=== PATIENT | male | born 1970 | race Caucasian/White ===

== ENCOUNTER 2016-12-16 09:29 | Emergency (ER) | payer SELFPAY ==
[~2016-12-16] VITALS: Ht 182.9 cm; Wt 80.7 kg
--- NOTE | 2016-12-16 09:48 | Emergency Room Report ---
History of Present Illness Time Seen by MD Bruce Presenting Problem in Triage Pt arrived:Walked Presenting Problem:PT REPORTS PAIN AT UMBILICAL AREA THAT BEGAN YESTERDAY AND HAS GOTTEN WORSE. 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 N Clinical Suspician of Infection? N Mental Status: 1 - Regular (Normal Baseline) Sepsis Risk:Low Sepsis Risk Have you (or family members/close friends) recently traveled outside the [place]? N If Yes, where/when: Have you had exposure to infectious disease within the past month? N TB? Other? Specify: Patient states 9 PM last night he started with sharp achy umbilical area pain that does not radiate anywhere. Does not radiate to his back. Denies nausea vomiting diarrhea fevers or chills he states this is a new pain for him. He states it feels better laying on his side. Does not like to move with that he makes no urinary complaints. He rates the pain and 9/10. ALLERGIES Coded Allergies: oxycodone (NA-NAUSEA 12/16/16) tramadol ("KNOCKS ME OUT" 12/16/16) Home Medications Reported Medications No Known Home Medications History Medical History General CAD? No Angina: No PR: No Hypertension? No Hyperlipidemia? No CHF? No DVT? No PE? No COPD? No Asthma? No Anemia? No GERD? No Gastric ulcers? No GI Bleed? No Hernia? Yes Thyroid Problems? No Hypothyroidism? No CVA? No Seizures? No Diabetes? No Renal Insuffiency? No End Stage Renal Disease? No UTI? Yes Stones? Yes GB Disease: No Nephritic Syndrome? No Asplenia? No Hepatitis? No Sickle Cell Disease? No Arthritis? No Migraines? No Cataracts? No Glaucoma? No MRSA? No HIV? No TB? No Anxiety? No Depression? No Cancer? No More? No Immunization Hx DT/Tetanus 5-10 YRS Flu NEVER Pneumonia NEVER Surgical Hx Previous Surgery?Y Appendix LAPAROTOMY FOR BOWEL OBST RUCTION KNEE ARTHROSCOPY R LITHOTRIPSY WITH STENT ORAL SURGERY Hernia Repair TUMOR REMOVED FROM FINGER Family History Family Hx Diabetes Yes CAD Yes Hypertension Yes Hyperlipidemia Yes Cancer Yes TB No Social History Smoking Hx Smoker: Current Every Day Smoker Tobacco: Yes Type Cigarettes Packs/day 1 1/2 - 2 Packs Alcohol Alcohol: No Review of Systems All Other Systems Reviewed and Negative Physical Exam Vital Signs Vital Signs Date Time Temp Pulse Resp B/P Pulse O2 O2 Flow FiO2 Ox Delivery Rate 12/16 1225 71 20 124/72 98 12/16 1137 20 12/16 1058 63 18 126/83 97 12/16 1006 14 12/16 0934 97.5 63 18 136/86 97 General Appearance: Nontoxic Head: Normocephalic, without obvious abnormality, atraumatic. Eyes: conjunctiva/corneas clear ENT: Mucous membranes moist. Neck: No jugular venous distention. Cardiac: regular rate and rhythm Lungs: Clear to auscultation bilaterally Abdomen: Epigastric umbilical and RIGHT lower quadrant tenderness, Nondistended, positive bowel sounds, no rebound : No CVA tenderness Extremities: no edema Musculoskeletal: No chest wall tenderness Skin: No rashes or lesions to exposed skin. Neurologic: Alert. No gross focal deficits Psychiatric: Normal affect (Tawnya TRIPP, Dmitri) General Appearance normal appearance Respiratory Status No: respiratory distress. Cardiovascular normal exam Neurologic alert Medical Decision Making LABS/Meds/Orders Pt receiving controlled substance in ED? No Comment 1005 repeat exam, rlq hernia areas NT per patient. hx r sided hernia and sp repair r inquinal hernia. states some tenderness in r inquinal hernai repair area but states chronic, no inquine hernia palpated. does have rlq hernia palpable but states nt. 111pm pt standing up in ER hallway, telling RNs he wants to leave. I ask him why he states its a "personal issue" I discussed with risk of sudden , permanent disability. CT scan result still pending. 114 pleaded with patient to stay, on phone with ct to try to get read. CT scan has come back read by radiologist with "no definitive evidence of acute abdominal or pelvic pathology Results/Orders Laboratory Tests 12/16/16 0955: Urine Color YELLOW, Urine Appearance CLEAR, Urine pH 6.5, Ur Specific Galt 1.020, Urine Protein NEGATIVE, Urine Ketones NEGATIVE, Urine Blood TRACE-INTACT, Urine Nitrate NEGATIVE, Urine Bilirubin NEGATIVE, Urine Urobilinogen 0.2, Ur Leukocyte Esterase NEGATIVE, Urine RBC OCC, Urine WBC NONE, Ur Squamous Epith Cells OCC, Urine Bacteria 1+, Urine Glucose NEGATIVE 12/16/16 0950: Sodium 136, Potassium 4.3, Chloride 103, Carbon Dioxide 28, BUN 17, Creatinine 0.8, Estimated Creat Clear 135, Estimated GFR (MDRD) 105, Glucose 94, Calcium 9.0, Total Bilirubin 0.3, AST 16, ALT 32, Alkaline Phosphatase 73, Troponin I < 0.02, Total Protein 7.6, Albumin 4.0, Globulin 3.6 H, Albumin/Globulin Ratio 1.1, Lipase 149, WBC 11.3 H, RBC 5.22, Hgb 16.8, Hct 50.3, MCV 96.4, RDW 12.5, Plt Count 259, Gran % 66.9, Gran # 7.6, Lymphocytes % 24.1, Monocytes % 5.6, Eosinophils % 3.1, Basophils % 0.3, Lymphocytes # 2.5, Monocytes # 0.6, Eosinophils # 0.4, Basophils # 0.0, PUBS MCHC 33.4, MCH 32.1 H Current Medication Orders Sig/Berlin Start time Last Medication Dose Route Stop Time Status Admin Ondansetron HCl 0 .STK-MED ONE 12/161 DC .ROUTE Morphine Sulfate 0 .STK-MED ONE 12/16 1130 DCr .ROUTE Ketorolac 15 MG ONCE ONE 12/16 1015 DC 12/16 Tromethamine IV 12/16 1016 1006 Ketorolac 0 .STK-MED ONE 12/16 1006 DC Tromethamine .ROUTE Diatrizoate Meglum/ 30 ML ONCE ONE 12/16 1000 DC 12/16 Diatrizoate Sod PO 12/16 1001 0958 Sodium Chloride 10 ML PRN PRN 12/16 1000 AC IV 12/17 0946 Sodium Chloride 1,000 ML .STK-MED ONE 12/16 0959 DC IV Diatrizoate Meglum/ 0 .STK-MED ONE 12/16 0952 DC Diatrizoate Sod .ROUTE Morphine Sulfate 4 MG ONCE ONE 12/16 0845 DCr 12/16 IV 12/16 0946 1137 Ondansetron HCl 4 MG ONCE ONE 12/16 0845 DC 12/16 IV 12/16 0946 1136 Sodium Chloride 1,000 ML .Q1H1M 12/16 0845 DC 12/16 IV 12/16 1045 0959 Sodium Chloride 10 ML PRN PRN 12/16 944 AC IV 12/17 944 Orders Procedure Date/time Status DIET-NOTHING BY MOUTH 12/[address] ABD W/RLQ PAIN REQ 12/17 951 Complete ELECTROCARDIOGRAM REQUEST 12/[address] ABD W/RLQ PAIN REQ 12/16 945 Active CHEST(2 VIEWS-NOT PORTABLE) 12/16 945 Active IV SALINE LOCK 12/16 945 Active URINALYSIS/COMPLETE 12/16 945 Complete TROPONIN I 12/16 945 Complete LIPASE 12/16 945 Complete CBC WITH AUTO DIFF 12/16 945 Complete CHEM 12 PROFILE 12/16 945 Complete 12 LEAD EKG-SAMANTHA (INITIAL) 12/[address] ABD & PELVIS W/ CONTRAST 12/16 UNK Active 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 Rhythm Sinus Bradycardia Rate 47 Ectopy No Comments Normal axis nonspecific electrocardiogram Departure Departure Time of Disposition 1338 Disposition DC Home or Self Care(routine) Clinical Impression Primary Impression: Abdominal pain Condition STABLE Patient Instructions DI for Abdominal Pain-Adult Additional Instructions follow up with PMD from list RN will give you return to ER if worse Discharge Counseling Counseled pt/family regarding diagnosis, test results, medications/RX, home care, follow up needs Prescriptions Current Visit Scripts Ondansetron (Zofran 4MG Odt) 4 MG PO Q6HP PRN NAUSEA AND VOMITING #10 ODT ED Critical Care Critical Care No at 1340
[2016-12-16 10:01] LABS: HEMOGLOBIN 16.8 g/dL (14.1-18.0); LYMPH # 2.5 K/mm3 (0.7-4.5); LYMPH % 24.1 % (10-50)
[2016-12-16 10:02] LABS: URINE BILIRUBIN - DIPSTICK NEGATIVE (NEG); URINE BLOOD TRACE-INTACT (NEG)
[2016-12-16 10:11] LABS: URINE SQUAMOUS CELLS OCC #/hpf (OCC)
[2016-12-16 10:20] LABS: BUN 17 mg/dL (7-18)
[2016-12-16 10:21] LABS: GFR (ESTIMATED) 105 ML/MIN (>60)
[2016-12-16 14:16] VITALS: BP 124/72
--- NOTE | 2016-12-16 16:06 | RADIOLOGY REPORT PS360 ---
CHEST(2 VIEWS-NOT PORTABLE) INDICATION: Chest pain COMPARISON: PA and lateral chest 02/04/2010 FINDINGS: The lung silveira are well expanded and appear clear of infiltrate. The cardiomediastinal silhouette and vascularity are normal. The costophrenic angles are clear. The bony thorax is normal. IMPRESSION: Normal chest.
--- NOTE | 2016-12-16 20:16 | RADIOLOGY REPORT PS360 ---
CT ABD PELVIS W/ CONTRAST HISTORY: RLQ PAIN. Patient Age: 46 years: Male Ordering Physician: Dmitri Bowling MD TECHNIQUE: Helical CT scanning performed through abdomen and pelvis following 75 cc Isovue-370. Oral contrast also utilized.. Early venous phase imaging as well as 5 minute delayed images performed. COMPARISON :Previous CTA abdomen November 2011 FINDINGS Lung bases appear clear no active disease. Heart upper normal size. Liver. Small fatty focus adjacent to the right of the fissure and falciform ligament region. This was partially imaged 2011 but can be followed. No focal areas of concern at the liver. Pancreas. No lesions evident. A generous but normal pancreatic duct observed. Spleen appears normal size. Left adrenal. Generous left a small nonfunctioning adenoma 11 x 10 mm. Its density decreases by greater than 50% on the 5 minute follow-up. This supports benign character. Right adrenal unremarkable. KIDNEYs. No obstruction. No significant calculi. Normal enhancement. Ureters normal in course and caliber can be followed to the normal appearing bladder. Prostate appears normal in size. However note Slightly ill-defined margins about the prostate. This is seen previously on 2012 CT in this unlikely reflects prostatitis. GI TRACT. Generous stool throughout the colon reflect mild constipation.. Redundant cecum resides in the lower right pelvis No evidence of appendicitis.. However I do not discretely visualized appendix appears the lower right pelvis see no evidence of appendicitis or inflammation. Moderate pelvic veins pelvic sidewall. Small bowel appears normal. Terminal ileum UNREMARKABLE. There are some stable moderate nodes at the inguinal regions and groin bilaterally. Regarding right lower quadrant pain:. There is a small lateral, spigellian type,/semilunar hernia seen at the right lower quadrant. This was evident previously. Abdominal wall defect likely measuring just over 12 mm height x 20 mm transverse. Slight bulging of fat into this area. With subtle hazy appearance this seen here. Question some possible scant inflammation associated.. This is best seen on sagittal image 24-26 and axial image 79. This was not noted on [facility] report IMPRESSION: Regarding right lower quadrant pain: 1 Again seen small semilunar/spigellian type hernia towards RLQ.. . Subtle hazy appearance to the bulging fat into this this defect noted-q question could reflect some very minor inflammation in this fat, passing into this small hernia.. If pain persists consider surgical consult ..-No bowel loops involvement here. Only fat 2. Low-lying redundant cecum at the right pelvis. \ Appendix is not discretely visualized but no evidence of appendicitis. . No fluid in the pelvis. 3. Generous stool is seen throughout the colon-may reflect mild constipation 4.. Normal functioning kidneys bilaterally. No obstruction or calculi
--- OUTSIDE RECORDS SUMMARY | 2016-12-24 13:59 | External Medical Summary Rpt | CCD ---
Author Author , SHELLY BRAVO Address Unknown Phone [email or web address] Care Team Providers Care Cafeteria Counter Attendant Name Role Phone RIGOBERTO VALLE JR, Unavailable Unavailable RIGOBERTO VALLE JR [facility] Unavailable Unavailable SURGERY [facility], [facility] SURGERY [facility] Unavailable Unavailable [facility], [facility] SHRAVAN SINGH, Unavailable Unavailable SHRAVAN SINGH WARREN, Unavailable Unavailable CHANEL VALENTE [facility] Unavailable Unavailable SERVICE, [facility] VINEET ORTIZ, Unavailable Unavailable VINEET ORTIZ CARINA, Unavailable Unavailable ROBBI MIGUEL JR, J V, Unavailable Unavailable Max RICKS JR, DOUGLAS, Unavailable Unavailable ESTEFANIA BEATTY GEOFFREY L.PQuinn, GEOFFREY L.P. Unavailable Unavailable [facility] [place], Unavailable Unavailable [facility] Unavailable Unavailable INC, [facility] ALEJANDRA WALKER, Unavailable Unavailable ALEJANDRA WALKER MATHEW A, Unavailable Unavailable DHARA LAINEZ OZOR MAR, OZOR MAR Unavailable Unavailable OZOR MAR, OZOR MAR Unavailable Unavailable MICKI LAZAR, Unavailable Unavailable MICKI LAZAR MARK E, Unavailable Unavailable SATHISH WHITMAN STEPHEN P, Unavailable Unavailable SHRAVAN PAIZ JEFF A, Unavailable Unavailable JIM SANTOYO JEFFREY M, Unavailable Unavailable EVELIA COTO [facility] Unavailable Unavailable [address][id number], [facility] Unavailable Unavailable [address]591, [facility] # Unavailable Unavailable [id number], [facility] # [id number] SHARON MUNROE, Unavailable Unavailable SHARON MUNROE Purpose Continuity of Care Document - 06-21-2008 through 2016 Problems Code Diagnosis DOS Provider Status 7821 RASH AND 05-25-2013 OZOR MAR OTHER NONSPECIFIC SKIN ERUPTION 6829 CELLULITIS 08-09-2009 [facility]THLOCCO [place] [facility]ESS [facility] OF UNSPECIFIED SITE 2152 OTH STEPHEN LADONNA 07-18-2009 [place] CNCTV&OTH TZ SFT TISS UP &ASSOCHANDC LIMB ARE [facility] W/SHLDR 9595 INJURY 07-18-2009 RUI VERDE OTHER AND TZ UNSPECIFIED &ASSOCHANDC FINGER ARE [facility] V5889 ENCOUNTER 07-18-2009 R[place] VERDE FOR OTHER TZ SPECIFIED &ASSOCHANDC AFTERCARE ARE [facility] 51300 PAIN IN 07-01-2009 RUI VERDE JOINT, HAND TZ AND ASSOC[facility] 21429 SWELLING OF 07-01-2009 RUI VERDE LIMB TZ AND ASSOC[facility]ATES 29931 UNSPECIFIED 07-01-2009 R[place] VER[facility] CYST OF TZ AND BONE ASSOCIATES V5878 AFTERCARE 07-01-2009 R[place] FOLLOW TZ AND SURGERY ASSOCIATES MUSCULOSKEL SYSTEM NEC 46964 UNSPECIFIED 06-30-2009 [facility] CELLULITIS [facility] AND [facility] ABSCESS OF FINGER 97856 OTHER 06-30-2009 [facility] POSTOPERATI EMERGENCY VE SERVICES INFECTION ASSOCIATES NEC 2135 BENIGN 06-28-2009 [facility] NEOPLASM OF [facility] SURGERY BONES OF [place], [facility] UPPER LIMB 2380 NEOPLASM 06-28-2009 ALL[facility] UNCERTAIN AND LIRA BEHAVIOR PSC BONE&ARTICL R CART 7062 SEBACEOUS 06-28-2009 [facility] [place] PATHOLOGIST PSC V7281 PRE-OPERATI 06-26-2009 [facility] CARDIOVASCU INC LAR EXAMINATION 7822 LOCALIZED 06-03-2009 [facility] [place] SUPERFICIAL ORTHOPAEDIC SWELLING S PLC MASS OR LUMP 2382 NEOPLASM OF 05-31-2009 MILLICENT UNCERTAIN JR J V BEHAVIOR OF SKIN 62751 DISORDER OF 05-31-2009 [place] ORTHO BONE AND AND HAND CARTILAGE SURGEONS UNSPECIFIED PSC 80981 OTHER 05-22-2009 ESTEFANIA C SYMPTOMS ROGERIO REFERABLE JOINT OTHER SPEC SITE 72070 ING SHIRA 04-11-2009 TORI HICKS, W/O MENTION RIGOBERTO F OBST/GANG[place] N UNILAT/[place] [address] ABDOMINAL 03-26-2009 [place] PAIN RIGHT MEDICAL LOWER [facility] 55497 CHEST PAIN 03-16-2009 [facility] UNSPECIFIED [facility] PROF SERV 17144 OTHER CHEST 03-16-2009 [facility] V7283 OTHER 01-23-2009 [facility] SPECIFIED [facility] PRE-OPERATI INC VE EXAMINATION 70527 [facility] 01-[facility] RICKS W/O JR, J V OBST/GANGRE N RECUR UNILAT/UNS Medications Na ND Rx Da Fi Fi Am Da Di Ph RX Ph St me C No te ll ll ou ys ag ar # ys at rm s nt no ma ic us Or Da si cy ia de te s n re d JAY 53 05 05 0 20 10 WA 71 FO Ac LF 74 -2 -2 .0 L- 93 WL ti AM 60 8- 8- 00 MA 07 ES ve ET 27 20 20 RT 0 HO 20 10 10 TH XA 5 PH OM ZO AR LE MA W -T CY MP # DS 10 05 TA 71 BL ET 00 04 04 0 10 2 NV 44 Ac 40 -1 -1 .0 L- 96 OL ti 60 8- 8- 00 MA 65 ET ve 36 20 20 RT 4 TE 30 10 10 1 PH JE AR FF MA RE CY Y # M 10 05 71 JAY 53 04 04 0 40 10 NV 71 Ac LF 74 -1 -1 .0 L- 86 OL ti AM 60 8- 8- 00 MA 17 ET ve ET 27 20 20 RT 1 TE HO 20 10 10 XA 5 PH JE ZO AR FF LE MA RE -T CY Y MP # M DS 10 05 TA 71 BL ET 00 04 04 0 40 2 NV 44 BR Ac 40 -1 -1 .0 L- 96 EI ti 60 6- 6- 00 MA 61 DE ve 35 20 20 RT 2 NB 70 10 10 AC 5 PH H AR WA MA RR CY EN # 10 05 71 58 11 12 00 20 5 NV 70 AL Ac 17 -1 -0 .0 L- 46 LR ti 70 7- 3- 00 MA 22 AN ve 30 20 20 RT 6 10 09 09 JR 4 PH AR CH MA AR CY LE S #5 F 91 CH 00 10 11 00 47 7 NV 71 HO Ac LO 11 -2 -0 3. L- 55 LL ti RH 62 7- 5- 00 MA 60 EN ve EX 00 20 20 0 RT 9 ID 11 09 09 RUPAL IN 6 PH AN E AR N 0. MA E 12 CY % RI #5 NS 71 E 53 06 07 00 90 30 WA 44 HU Ac 48 -2 -3 .0 L- 88 NT ti 90 3- 0- 00 MA 38 ve 11 20 20 RT 7 TR 00 09 09 AV 1 PH IS AR A MA CY #5 71 53 06 07 00 90 30 WA 44 HU Ac 48 -2 -1 .0 L- 88 NT ti 90 3- 6- 00 MA 38 ve 11 20 20 RT 7 TR 00 09 09 AV 1 PH IS AR A MA CY #5 71 00 04 04 00 30 30 WA 44 No Ac 40 -0 -0 .0 L- 85 t ti 60 3- 9- 00 MA 39 Av ve 35 20 20 RT 4 ai 80 09 09 la 1 PH bl AR e MA CY #5 71 Procedures Procedure DOS Code Location Performer Comment RADEX 59692 NICK VERDE FINGR 0 JO CH, MINIMUM 2 &ASSOCHAN CHANEL VIEWS DCARE PLL RADEX 13208 DIANA VERDE FINGR 0 JO AND VINEET K MINIMUM 2 ASSOCIATE VIEWS S BLOOD 45067 [facility] COUNT 0 [facility] COMPLETE INC INC AUTO&AUTO DIFRNTL WBC RADEX 38706 [facility] FINGR 0 [facility] MINIMUM 2 INC INC VIEWS EXC 38044 NICK VERDE LESION 0 JO CH, TDN &ASSOCHAN CHANEL SHTH/JT DCARE CAPSL PLL HAND/FNGR ANES 01474 ALLAN PAIZ, ARTHRS/EN 0 AND SHRAVAN P DSCPY LIRA DSTL PSC RADIUS ULNA/WRIS T/HAND LEVEL III 41494 [facility] SURG 0 [facility] PATHOLOGY [facility] GROSS&ELI ROSCOPIC EXAM PROSTHETI L8699 [facility] C IMPLANT 0 [facility] NOT SURGERY SURGERY OTHERWISE [facility] SPECIFIED EXCISION/ 66322 [facility] CURETTAGE 0 [facility] SURGERY SURGERY CYST/TUMO [facility], [facility] FINGER SLINGS A4565 [facility] 0 BLOOD 09986 [facility] COUNT 0 [facility] COMPLETE INC INC AUTO&AUTO DIFRNTL WBC RADEX 83216 NICK VERDE FINGR 0 JO CH, MINIMUM 2 &ASSOCHAN CHANEL VIEWS DCARE [facility] MRI UPPER 24830 CAPRI MIGUEL, EXTREM 0 IMAGING [facility] THAN JT W/O & W/CONTRAS MRI UPPER 79765 ESTEFANIA C ROGERIO, 0 ROGERIO ESTEFANIA EXTREMITY OTH THAN JT W/O CONTR MATRL RADEX 89614 CAPRI AARON, FINGR 0 MEDICAL ALEJANDRA P MINIMUM 2 IMAGING VIEWS ASSOCIATE S PELVIC [address] [facility] [place] [place] ROGERIO, 0 MEDICAL ESTEFANIA NONOBSTET IMAGING RADHA ASSOCIATE REAL-TIME S IMAGE COMPLETE GROUND A0425 ELROY ABBASI MILEAGE 0 AMBULANCE AMBULANCE PER SERVICE SERVICE STATUTE MILE ECG 97510 [facility] SINGH, ROUTINE 0 [facility] W/LEAST PROF SERV 12 LDS I&R ONLY RHYTHM 90197 [facility] STR[facility]D ECG 1-3 0 MEM HOS[facility] MEM [facility]OS[facility] LEADS INC INC TRACING ONLY W/O I&R AMB A0422 ELROY ABBASI OXYGEN&O2 0 AMBULANCE AMBULANCE SUPPLIES SERVICE SERVICE LIFE SUSTAININ G SITUATION BLOOD 19923 [facility] COUNT 0 [facility]OS[facility] COMPLETE INC INC AUTO&AUTO DIFRNTL WBC BASIC 61800 [facility] METABOLIC 0 [facility] PANEL INC INC CALCIUM TOTAL AMB A0427 ELROY ABBASI SERVICE 0 AMBULANCE AMBULANCE ALS SERVICE SERVICE EMERGENCY TRANSPORT LEVEL [address] [place] [address] [facility] TROPONIN 0 [facility] QUANTITAT INC INC KAELA CREATINE 93796 [facility] KINASE MB 0 MEM HOS[facility] FRACTION INC INC ONLY CREATINE 38830 [facility] KINASE 0 [facility] H[facility]OS[facility] TOTAL INC INC ECG 31033 [facility] ROUTINE 0 [facility]OS[facility] ECG INC INC W/LEAST 12 LDS TRCG ONLY W/O I&R RADIOLOGI 54907 [facility] C 0 [facility] HOS[facility] MEM HOS[facility] EXAMINATI INC INC ON CHEST SINGLE VIEW FRONTAL LAPAROSCO 48874 TORI REINOSORAN PY SURG 9 JR, JR, RPR RIGOBERTO [place] [address] [facility] INFUSION 9 [facility] THERAPY INC INC PROPHYLAX IS/DX EA HOUR ANESTHESI 96455 Mckenna CUMMINS 9 ANESTH IJM A INTRAPERI OF THE TONEAL [place] [address] [facility] AMXIMUS INFUSION 9 MEM HOS[facility]OS[facility] THERAPY/P INC INC ROPHYLAXI S /DX 1ST TO 1 HR THERAPEUT 16966 [facility] IC 9 [facility] INJECTION INC INC IV PUSH EACH NEW DRUG LAP REP 1712 [facility] INDIRECT 9 [facility] INGUINAL INC INC HERNIA W/GRAFT/P ROST BLOOD 66913 [facility] COUNT 9 [facility] MEM HOS[facility] HEMOGLOBI INC INC N BLOOD 30994 [facility] COUNT 9 [facility] MEM HOSP HEMATOCRI INC INC T BASIC 43734 [facility] METABOLIC 9 [facility] PANEL INC INC CALCIUM TOTAL Encounters Encounter Start End Date Code Location Performer Type Date EMERGENCY 00417 OZOR CARLOS MARTÍNEZ MAR 4 4 [facility] T VISIT MODERATE SEVERITY [facility]ICE [facility] 0 0 N URGENT ABDOLREZA T NEW 30 CARE [facility] - 0 0 [facility] [address] [facility] [address] [facility] VISIT MODERATE SEVERITY EMERGENCY 04665 ALLAN COTO, 0 0 EMERGENCY [facility] SERVICES [facility] VISIT HIGH/URGE ASSOCIATE NT S [facility] 0 0 [facility] T OFFICE 17381 NICK VERDE CONSULTAT 0 0 JO HARPER, SIMI &SANDRA BUCHANAN NEW/ESTAB [facility] 40 MIN OFFICE 70126 [facility] 0 0 [place] SHARON Mckeon T VISIT ORTHOPAED 25 ICS PLC MINUTES OFFICE 25063 MILLICENT RICKS OUTPATIEN 0 0 Max HICKS JR, J V T VISIT 15 MINUTES OFFICE 87568 [place] [facility] [place], OUTPATIEN 0 0 AND HAND DHARA A T VISIT SURGEONS 10 PSC MINUTES [facility]OSPITAL [facility] - 0 0 [facility] OUTPATIEN INC T OFFICE 87223 [place] [facility] [place], OUTPATIEN 0 0 AND HAND DHARA A T NEW 30 SURGEONS MINUTES PSC OFFICE 22345 ALLRAN ALLRAN OUTPATIEN 0 0 JR HICKS T VISIT RIGOBERTO Tomasz RIGOBERTO Tolbert 15 MINUTES HOSPITAL [facility] - 0 0 [facility] OUTPATIEN INC T EMERGENCY 12914 ALLAN [place], DEPT 0 0 EMERGENCY [facility] VISIT SERVICES HIGH SEVERITY& ASSOCIATE THREAT S [facility] - 0 0 [facility] OUTPATIEN INC T EMERGENCY 38681 [facility] 0 0 [facility] DEPARTMEN INC T VISIT HIGH/URGE NT SEVERITY [facility] - 9 9 [facility] OUTPATIEN INC T [facility] - 9 9 [facility] OUTPATIEN INC T OFFICE 17050 ALLRAN ALLRAN CONSULTAT 9 9 JR HICKS ION CHARLES Tomasz Tolbert NEW/ESTAB PATIENT 60 MIN OFFICE 37193 MILLICENT RICKS OUTPATIEN 9 9 Max HICKS JR, J V T VISIT 15 MINUTES
--- OUTSIDE RECORDS SUMMARY | 2016-12-24 13:59 | External Medical Summary Rpt | CCD ---
Author Author , SHELLY BRAVO Address Unknown Phone [email or web address] Care Team Providers Care Source Water Protection Specialist Name Role Phone RIGOBERTO VALLE JR, Unavailable Unavailable RIGOBERTO VALLE JR [facility] Unavailable Unavailable SURGERY [facility], [facility] SURGERY [facility] Unavailable [facility]available [facility], [facility] SHRAVAN SINGH, Unavailable Unavailable SHRAVAN SINGH WARREN, Unavailable Unavailable CHANEL VALENTE [facility] Unavailable Unavailable SERVICE, [facility] VINEET ORTIZ, Unavailable Unavailable VINEET [...] PHARMACY #591 [facility] # Unavailable Unavailable [id number], [facility] # [id number] SHARON MUNROE, Unavailable Unavailable SHARON MUNROE Purpose Continuity of Care Document - 06-21-2008 through 2016 Problems Code Diagnosis DOS Provider Status 7821 RASH AND 05-25-2013 OZOR MAR OTHER NONSPECIFIC SKIN ERUPTION 6829 CELLULITIS 08-09-2009 [place] AND [facility]ESS [facility]ENT CARE OF UNSPECIFIED SITE 2152 OTH STEPHEN LADONNA 07-18-2009 RUI VERDE CNCTV&OTH TZ SFT TISS UP &ASSOCHANDC LIMB ARE [facility] W/SHLDR 9595 INJURY 07-18-2009 RUI VERDE OTHER AND TZ UNSPECIFIED &ASSOCHANDC FINGER ARE [facility] V5889 ENCOUNTER 07-18-2009 RUI VERDE FOR OTHER TZ SPECIFIED &ASSOCHANDC AFTERCARE ARE [facility] 36226 PAIN IN 07-01-2009 RUI VERDE JOINT, HAND TZ AND ASSOCIATES 47163 SWELLING OF 07-01-2009 RUI VERDE LIMB TZ AND ASSOCIATES 04165 UNSPECIFIED 07-01-2009 RUI VERDE CYST OF TZ AND BONE ASSOCIATES V5878 AFTERCARE 07-01-2009 RUI VERDE FOLLOW TZ AND SURGERY ASSOCIATES MUSCULOSKEL SYSTEM NEC 29390 UNSPECIFIED 06-30-2009 MAXIMUS CELLULITIS [facility] AND INC ABSCESS OF FINGER 88031 OTHER 06-30-2009 [place] POSTOPERATI EMERGENCY VE SERVICES INFECTION ASSOCIATES NEC 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 [place], [facility] UPPER LIMB 2380 NEOPLASM 06-28-2009 ALLAN UNCERTAIN AND LIRA BEHAVIOR PSC BONE&ARTICL R CART 7062 SEBACEOUS 06-28-2009 [facility] [place] PATHOLOGIST PSC V7281 PRE-OPERATI 06-26-2009 MAXIMUS VE [facility] CARDIOVASCU INC LAR EXAMINATION 7822 LOCALIZED 06-03-2009 [place]AL [place] SUPERFICIAL ORTHOPAEDIC SWELLING S PLC MASS OR LUMP 2382 NEOPLASM OF 05-31-2009 MILLICENT UNCERTAIN JR J V BEHAVIOR OF SKIN 43935 DISORDER OF 05-31-2009 [place] ORTHO BONE AND AND HAND CARTILAGE SURGEONS UNSPECIFIED PSC 87968 OTHER 05-22-2009 ESTEFANIA C SYMPTOMS ROGERIO REFERABLE JOINT OTHER SPEC SITE 07714 ING SHIRA 04-11-2009 TORI HICKS, W/O MENTION RIGOBERTO F OBST/GANGRE N UNILAT/[place] [address] ABDOMINAL 03-26-2009 [place] PAIN RIGHT MEDICAL LOWER IMAGING [facility] 91969 CHEST PAIN 03-16-2009 MAXIMUS UNSPECIFIED [facility] PROF SERV 15994 OTHER CHEST 03-16-2009 [facility] AMBULANCE SERVICE V7283 OTHER 01-23-2009 MAXIMUS SPECIFIED [facility] PRE-OPERATI INC VE EXAMINATION 99524 [facility] 01-[facility]2009 RICKS W/O JR, J V [...] Procedure DOS Code Location Performer Comment RADEX 02092 NICK VERDE FINGR 0 JO CH, MINIMUM 2 &ASSOCHAN CHANEL VIEWS DCARE PLL RADEX 69053 DIANA VERDE FINGR 0 JO AND VINEET K MINIMUM 2 ASSOCIATE VIEWS S BLOOD 59762 MAXIMUS STROUD COUNT 0 [facility] COMPLETE INC INC AUTO&AUTO DIFRNTL WBC RADEX 40711 MAXIMUS STROUD FINGR 0 [facility] MINIMUM 2 INC INC VIEWS EXC 96940 NICK VERDE LESION 0 JO CH, TDN &ASSOCHAN CHANEL SHTH/JT DCARE CAPSL PLL HAND/FNGR ANES 93887 ALLAN PAIZ, ARTHRS/EN 0 AND SHRAVAN P DSCPY LIRA DSTL PSC RADIUS ULNA/WRIS T/HAND LEVEL III 52584 RELIGIOUS RELIGIOUS SURG 0 [facility] PATHOLOGY [facility] GROSS&ELI ROSCOPIC EXAM PROSTHETI L8699 RELIGIOUS RELIGIOUS C IMPLANT 0 [facility] NOT SURGERY SURGERY OTHERWISE [facility], [facility] SPECIFIED EXCISION/ 98024 RELIGIOUS RELIGIOUS CURETTAGE 0 [facility] SURGERY SURGERY CYST/TUMO [facility], [place] [facility] FINGER SLINGS A4565 [facility] GE[facility] L.P. 0 BLOOD 31652 MAXIMUS STROUD COUNT 0 MEM H[facility] COMPLETE INC INC AUTO&AUTO DIFRNTL WBC RADEX 91715 NICK VERDE FINGR 0 JO CH, MINIMUM 2 &ASSOCHAN CHANEL VIEWS DCARE [facility] MRI UPPER 70017 CAPRI MIGUEL, EXTREM 0 IMAGING [facility] [employer] [facility] THAN JT W/O & W/CONTRAS MRI UPPER 52432 ESTEFANIA C ROGERIO, 0 ROGERIO ESTEFANIA EXTREMITY OTH THAN JT W/O CONTR MATRL RADEX 95842 CAPRI AARON, FINGR 0 MEDICAL ALEJANDRA P MINIMUM 2 IMAGING VIEWS ASSOCIATE S PELVIC 47029 [facility] ROGERIO, 0 MEDICAL ESTEFANIA NONOBSTET IMAGING RADHA ASSOCIATE REAL-TIME S IMAGE COMPLETE GROUND A0425 ELROY ABBASI MILEAGE 0 AMBULANCE AMBULANCE PER SERVICE SERVICE STATUTE MILE ECG 59534 MAXIMUS SINGH, ROUTINE 0 [facility] W/LEAST PROF SERV 12 LDS I&R ONLY RHYTHM 96670 MAXIMUS STROUD ECG 1-3 0 MEM HOS[facility] LEADS INC INC TRACING ONLY W/O I&R AMB A0422 ELROY ABBASI OXYGEN&O2 0 AMBULANCE AMBULANCE SUPPLIES SERVICE SERVICE LIFE SUSTAININ G SITUATION BLOOD 54812 MAXIMUS STROUD COUNT 0 MEM HOS[facility] COMPLETE INC INC AUTO&AUTO DIFRNTL WBC BASIC 67785 MAXIMUS STROUD METABOLIC 0 MEM H[facility] PANEL INC INC CALCIUM TOTAL AMB A0427 ELROY ABBASI SERVICE 0 AMBULANCE AMBULANCE ALS SERVICE SERVICE EMERGENCY TRANSPORT LEVEL [address] [place] [address] MAXIMUS STROUD TROPONIN 0 MEM HOS[facility] QUANTITAT INC INC KAELA CREATINE 95950 MAXIMUS STROUD KINASE MB 0 MEM HOS[facility] FRACTION INC INC ONLY CREATINE 20717 MAXIMUS STROUD KINASE 0 MEM H[facility] TOTAL INC INC ECG 02172 MAXIMUS STROUD ROUTINE 0 MEM H[facility] ECG INC INC W/LEAST 12 LDS TRCG ONLY W/O I&R RADIOLOGI 71871 MAXIMUS STROUD C 0 MEM HOS[facility]OS[facility] EXAMINATI INC INC ON CHEST SINGLE VIEW FRONTAL LAPAROSCO 76170 TORI REINOSORAN PY SURG 9 JR, JR, RPR RIGOBERTO [place] [address] MAXIMUS STROUD INFUSION 9 MEM HOSP [facility]OS[facility] THERAPY INC INC PROPHYLAX IS/DX EA HOUR ANESTHESI 33229 Mckenna CUMMINS 9 ANESTH JIM A INTRAPERI OF THE TONEAL [place] [address] MAXIMUS MAXIMUS INFUSION 9 MEM HOSP [facility]OS[facility] THERAPY/P INC INC ROPHYLAXI S /DX 1ST TO 1 HR THERAPEUT 97085 MAXIMUS STROUD IC 9 MEM H[facility] INJECTION INC INC IV PUSH EACH NEW DRUG LAP REP 1712 MAXIMUS STROUD INDIRECT 9 [facility] H[facility] INGUINAL INC INC HERNIA W/GRAFT/P ROST BLOOD 75188 MAXIMUS STROUD COUNT 9 MEM HOS[facility] MEM HOS[facility] HEMOGLOBI INC INC N BLOOD 42460 MAXIMUS STROUD COUNT 9 MEM H[facility]OS[facility] HEMATOCRI INC INC T BASIC 35467 MAXIMUS STROUD METABOLIC 9 [facility] PANEL INC INC CALCIUM TOTAL Encounters Encounter Start End Date Code Location Performer Type Date EMERGENCY 86752 OZOR CARLOS MARTÍNEZ MAR 4 4 [facility] VISIT MODERATE SEVERITY OFFICE 71485 [facility] 0 0 N URGENT ABDOLREZA T NEW 30 CARE [facility] MAXIMUS - 0 0 [facility] 01252 MAXIMUS 0 0 [facility] VISIT MODERATE SEVERITY EMERGENCY 99807 ALLAN COTO, [address] [facility] SERVICES [facility] VISIT HIGH/URGE ASSOCIATE NT S [facility] RELIGIOUS - 0 [facility] MAXIMUS - 0 0 [facility] OFF[facility] 51622 NICK VERDE CONSULTAT 0 0 JO HARPER, SIMI &SANDRA BUCHANAN NEW/ESTAB DCARE PATIENT PLLC 40 MIN OFFICE 57023 [facility] SHANEKA [facility] 0 0 [place] SHARON Mckeon T VISIT ORTHOPAED 25 ICS PLC MINUTES OFFICE 38874 MILLICENT RICKS OUTPATIEN 0 0 Max HICKS JR, J V T VISIT 15 MINUTES OFFICE 25359 [place] ORTHO FAT[place], OUTPATIEN 0 0 AND HAND DHARA A T VISIT SURGEONS 10 PSC MINUTES HOSPITAL MAXIMUS - 0 0 [facility] H[facility] OUTPATIEN INC T OFFICE 54647 [place] ORTHO [place], OUTPATIEN 0 0 AND HAND DHARA A T NEW 30 SURGEONS MINUTES PSC OFFICE 27210 ALLRAN ALLRAN OUTPATIEN 0 0 JR HICKS T VISIT RIGOBERTO Tomasz RIGOBERTO Tolbert 15 MINUTES HOSPITAL MAXIMUS - 0 0 [facility] H[facility] OUTPATIEN INC T EMERGENCY 16326 ALLAN [place], DEPT 0 0 EMERGENCY [facility] VISIT SERVICES HIGH SEVERITY& ASSOCIATE THREAT S [facility] MAXIMUS - 0 0 MEM HOS[facility] OUTPATIEN INC T EMERGENCY 79695 MAXIMUS 0 0 [facility] HOS[facility] DEPARTMEN INC T VISIT HIGH/URGE NT SEVERITY [facility] MAXIMUS - 9 9 MEM HOS[facility] OUTPATIEN INC T [facility] MAXIMUS - 9 9 [facility] HOS[facility] OUTPATIEN INC T OFFICE 95490 ALLRAN ALLRAN CONSULTAT 9 9 JR HICKS ION CHARLES Tomasz Tolbert NEW/ESTAB PATIENT 60 MIN OFFICE 62329 MILLICENT RICKS OUTPATIEN 9 9 Max HICKS JR, J V T VISIT 15 MINUTES
--- OUTSIDE RECORDS SUMMARY | 2016-12-24 14:00 | External Medical Summary Rpt | CCD ---
Author Author , SHELLY BRAVO Address Unknown Phone [email or web address] Care Team Providers Care Tumbler Tender Name Role Phone RIGOBERTO VALLE JR, Unavailable Unavailable RIGOBERTO VALLE JR [facility] Unavailable Unavailable SURGERY [facility] SURGERY [facility] Unavailable Unavailable [facility] SHRAVAN SINGH, Unavailable Unavailable SHRAVAN SINGH WARREN, Unavailable Unavailable CHANEL VALENTE [facility] Unavailable Unavailable SERVICE, [facility] VINEET ORTIZ, Unavailable Unavailable VINEET ORTIZ CARINA, Unavailable Unavailable ROBBI MIGUEL JR, J V, Unavailable Unavailable Max RICKS JR, DOUGLAS, Unavailable Unavailable ESTEFANIA BEATTY LQuinnPQuinn, GEOFFREY L.P. Unavailable Unavailable [place], Unavailable [...] PHARMACY #[facility] # Unavailable Unavailable [id number], [facility] # [id number] SHARON MUNROE, Unavailable Unavailable SHARON MUNROE Purpose Continuity of Care Document - 06-21-2008 through 2016 Problems Code Diagnosis DOS Provider Status 7821 RASH AND 05-25-2013 OZOR MAR OTHER NONSPECIFIC SKIN ERUPTION 6829 CELLULITIS 08-09-2009 [facility] AND ABSCESS URGENT CARE OF UNSPECIFIED SITE 2152 OTH STEPHEN LADONNA 07-18-2009 RUI VERDE CNCTV&OTH TZ SFT TISS UP &ASSOCHANDC LIMB ARE [facility] W/SHLDR 9595 INJURY 07-18-2009 RUI VERDE OTHER AND TZ UNSPECIFIED &ASSOCHANDC FINGER ARE [facility] V5889 ENCOUNTER 07-18-2009 RUI VERDE FOR OTHER TZ SPECIFIED &ASSOCHANDC AFTERCARE ARE [facility] 59054 PAIN IN 07-01-2009 RUI VERDE JOINT, HAND TZ AND ASSOCIATES 13952 SWELLING OF 07-01-2009 RUI VERDE LIMB TZ AND ASSOCIATES 10919 UNSPECIFIED 07-01-2009 RUI VERDE CYST OF TZ AND BONE ASSOCIATES V5878 AFTERCARE 07-01-2009 RUI VERDE FOLLOW TZ AND SURGERY ASSOCIATES MUSCULOSKEL SYSTEM NEC 44337 UNSPECIFIED 06-30-2009 MAXIMUS CELLULITIS MEM HOS[facility] AND INC ABSCESS OF FINGER 82528 OTHER 06-30-2009 [place] POSTOPERATI EMERGENCY VE SERVICES INFECTION ASSOCIATES NEC 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[place], [facility] UPPER LIMB 2380 NEOPLASM 06-28-2009 ALLAN UNCERTAIN AND LIRA BEHAVIOR PSC BONE&ARTICL R CART 7062 SEBACEOUS 06-28-2009 [facility] [place] PATHOLOGIST PSC V7281 PRE-OPERATI 06-26-2009 MAXIMUS VE MEM HOS[facility] CARDIOVASCU INC LAR EXAMINATION 7822 LOCALIZED 06-03-2009 CENTRAL [place] SUPERFICIAL ORTHOPAEDIC SWELLING S PLC MASS OR LUMP 2382 NEOPLASM OF 05-31-2009 MILLICENT JANSEN JR, J V BEHAVIOR OF SKIN 22872 DISORDER OF 05-31-2009 [place] ORTHO BONE AND AND HAND CARTILAGE SURGEONS UNSPECIFIED PSC 87831 OTHER 05-22-2009 ESTEFANIA C SYMPTOMS ROGERIO REFERABLE JOINT OTHER SPEC SITE 58512 ING SHIRA 04-11-2009 TORI HICKS, W/O MENTION RIGOBERTO F OBST/GANGRE N UNILAT/[place] [address] ABDOMINAL 03-26-2009 [place] PAIN RIGHT MEDICAL LOWER IMAGING [facility] 64576 CHEST PAIN 03-16-2009 MAXIMUS UNSPECIFIED [facility] PROF SERV 67776 OTHER CHEST 03-16-2009 [facility] PAIN AMBULANCE SERVICE V7283 OTHER 01-23-2009 MAXIMUS SPECIFIED MEM H[facility] PRE-OPERATI INC VE EXAMINATION 80333 [facility] SHIRA 01-07-2009 RICKS W/O JR, J V OBST/GANGRE [...] ET 00 04 04 0 10 2 WA 44 Ac 40 -1 -1 .0 L- 96 OL ti 60 8- 8- 00 MA 65 ET ve 36 20 20 RT 4 TE 30 10 10 1 PH JE AR FF MA RE CY Y # M 10 05 71 JAY 53 04 04 0 40 10 WA 71 Ac LF 74 -1 -1 .0 L- 86 OL ti AM 60 8- 8- 00 MA 17 ET ve ET 27 20 20 RT 1 TE HO 20 10 10 XA 5 PH JE ZO AR FF LE MA RE -T CY Y MP # M DS 10 05 TA 71 BL ET 00 04 04 0 40 2 WA 44 BR Ac 40 -1 -1 .0 L- 96 EI ti 60 6- 6- 00 MA 61 DE ve 35 20 20 RT 2 NB 70 10 10 AC 5 PH H AR WA MA RR CY EN # 10 05 71 58 11 12 00 20 5 WA 70 AL Ac 17 -1 -0 .0 L- 46 LR ti 70 7- 3- 00 MA 22 AN ve 30 20 20 RT 6 10 09 09 JR 4 PH AR CH MA AR CY LE S #5 F 91 CH 00 10 11 00 47 7 WA 71 HO Ac LO 11 -2 -0 [...] Procedure DOS Code Location Performer Comment RADEX 42893 NICK VERDE FINGR 0 JO CH, MINIMUM 2 &ASSOCHAN CHANEL VIEWS DCARE PLL RADEX 73655 DIANA VERDE, FINGR 0 JO AND VINEET K MINIMUM 2 ASSOCIATE VIEWS S RADEX 48877 CAPRI WALKER FINGR 0 MEDICAL ALEJANDRA P MINIMUM 2 IMAGING VIEWS ASSOCIATE S BLOOD 76429 MAXIMUS MAXIMUS COUNT 0 MEM HOS[facility] MEM HOS[facility] COMPLETE INC INC AUTO&AUTO DIFRNTL WBC EXCISION/ 54643 PROTESTANT PROTESTANT CURETTAGE 0 [facility] SURGERY SURGERY CYST/TUMO [facility] FINGER SLINGS A4565 [facility] GEOFFREY L.P. 0 LEVEL III 99831 PROTESTANT PROTESTANT SURG 0 [facility] PATHOLOGY [facility] GROSS&ELI ROSCOPIC EXAM EXC 16707 NICK VERDE LESION 0 JO CH, TDN &ASSOCHAN CHANEL SHTH/JT DCARE CAPSL [facility] HAND/FNGR ANES 50305 ALLAN PAIZ, ARTHRS/EN 0 AND SHRAVAN P DSCPY LIRA DSTL PSC RADIUS ULNA/WRIS T/HAND PROSTHETI L8699 PROTESTANT PROTESTANT C IMPLANT 0 [facility] SURGERY SURGERY OTHERWISE [facility] [place] SPECIFIED BLOOD 67068 MAXIMUS MAXIMUS COUNT 0 MEM H[facility]OS[facility] COMPLETE INC INC AUTO&AUTO DIFRNTL WBC RADEX 99096 NICK VERDE FINGR 0 JO CH, MINIMUM 2 &ASSOCHAN CHANEL VIEWS DCARE [facility] MRI UPPER 91891 CAPRI MIGUEL, EXTREM 0 IMAGING [facility] THAN JT W/O & W/CONTRAS MRI UPPER 79034 ESTEFANIA C ROGERIO, 0 ROGERIO ESTEFANIA EXTREMITY OTH THAN JT W/O CONTR MATRL RADEX 56913 CAPRI AARON, FINGR 0 MEDICAL ALEJANDRA P MINIMUM 2 IMAGING VIEWS ASSOCIATE S US PELVIC 36445 CAPRI ROGERIO, 0 MEDICAL ESTEFANIA NONOBSTET IMAGING RADHA ASSOCIATE REAL-TIME S IMAGE COMPLETE GROUND A0425 ELROY ABBASI MILEAGE 0 AMBULANCE AMBULANCE PER SERVICE SERVICE STATUTE MILE ECG 81665 MAXIMUS SINGH, ROUTINE 0 [facility] W/LEAST PROF SERV 12 LDS I&R ONLY RHYTHM 17804 MAXIMUS STROUD ECG 1-3 0 MEM HOSP MEM HOS[facility] LEADS INC INC TRACING ONLY W/O I&R BLOOD 59314 MAXIMUS STROUD COUNT 0 MEM H[facility]OS[facility] COMPLETE INC INC AUTO&AUTO DIFRNTL WBC AMB A0422 ELROY ABBASI OXYGEN&O2 0 AMBULANCE AMBULANCE SUPPLIES SERVICE SERVICE [place] [address] MAXIMUS STROUD TROPONIN 0 MEM HOSP MEM HOSP QUANTITAT INC INC KAELA CREATINE 19908 MAXIMUS STROUD KINASE 0 MEM HOS[facility]OS[facility] TOTAL INC INC ECG 30521 MAXIMUS STROUD ROUTINE 0 [facility] H[facility] ECG INC INC W/LEAST 12 LDS TRCG ONLY W/O I&R RADIOLOGI 19327 MAXIMUS STROUD C 0 MEM HOS[facility]OS[facility] EXAMINATI INC INC ON CHEST SINGLE VIEW FRONTAL BASIC 33755 MAXIMUS STROUD METABOLIC 0 MEM HOS[facility] PANEL INC INC CALCIUM TOTAL AMB A0427 ELROY ABBASI SERVICE 0 AMBULANCE AMBULANCE ALS SERVICE SERVICE EMERGENCY TRANSPORT LEVEL 1 CREATINE 53166 MAXIMUS STROUD KINASE MB 0 MEM HOSP [facility]OS[facility] FRACTION INC INC ONLY ANESTHESI 44884 Mckenna CUMMINS 9 ANESTH JIM A INTRAPERI OF THE TONEAL BLUEGRASS [place] [address] MAXIMUS STROUD INFUSION 9 MEM HOSP [facility] THERAPY INC INC PROPHYLAX IS/DX EA HOUR LAPAROSCO 03860 MAXIMUS STROUD PY SURG 9 MEM HOS[facility] HOS[facility] RPR [place] [address] MAXIMUS STROUD INFUSION 9 MEM HOSP MEM HOS[facility] THERAPY/P INC INC ROPHYLAXI S /DX 1ST TO 1 HR THERAPEUT 52318 MAXIMUS STROUD IC 9 [facility] HOS[facility] INJECTION INC INC IV PUSH EACH NEW DRUG LAP REP 1712 MAXIMUS STROUD INDIRECT 9 MEM HOS[facility]OS[facility] INGUINAL INC INC HERNIA W/GRAFT/P ROSTH BLOOD 49248 MAXIMUS STROUD COUNT 9 MEM HOS[facility] HEMOGLOBI INC INC N BASIC 29805 MAXIMUS STROUD METABOLIC 9 [facility] PANEL INC INC CALCIUM TOTAL BLOOD 84039 MAXIMUS STROUD COUNT 9 [facility] HEMATOCRI INC INC T Encounters Encounter Start End Date Code Location Performer Type Date EMERGENCY 68101 OZOR MAR OZOR MAR 4 4 DEPARTMEN T VISIT MODERATE SEVERITY OFFICE 76115 [facility] 0 N URGENT ABDOLREZA [facility] 30 CARE [facility] MAXIMUS - 0 0 [facility] EMERGENCY 95627 ALLAN COTO, 0 0 EMERGENCY [facility] SERVICES T VISIT HIGH/URGE ASSOCIATE NT S SEVERITY EMERGENCY 96030 MAXIMUS 0 0 [facility] T VISIT MODERATE SEVERITY HOSPITAL PROTESTANT - 0 0 [facility] MAXIMUS - 0 0 [facility] OUTPATIEN [facility] T OFFICE 46710 NICK VERDE CONSULTAT 0 0 JO HARPER, SIMI &SANDRA BUCHANAN NEW/ESTAB DCARE PATIENT PLLC 40 MIN OFFICE 06930 [facility] 0 0 [place] SHARON Mckeon T VISIT ORTHOPAED 25 ICS PLC MINUTES OFFICE 00728 [place] ORTH[place], OUTPATIEN 0 0 AND HAND DHARA A T VISIT SURGEONS 15 PSC MINUTES OFFICE 27937 [place], OUTPATIEN 0 0 AND HAND DHARA A T VISIT SURGEONS 10 PSC MINUTES OFFICE 99430 [place], OUTPATIEN 0 0 AND HAND DHARA A T NEW 30 SURGEONS MINUTES [facility] MAXIMUS - 0 0 MEM HOSP OUTPATIEN INC T OFFICE 88072 ALLRAN ALLRAN OUTPATIEN 0 0 JR KURT, Karolina VISIT RIGOBERTO Tolbert 15 MINUTES HOSPITAL MAXIMUS - 0 0 MEM HOS[facility] OUTPATIEN INC T EMERGENCY 20787 ALLAN [place], DEPT 0 0 EMERGENCY [facility] VISIT SERVICES HIGH SEVERITY& ASSOCIATE THREAT S [facility] MAXIMUS - 0 0 MEM HOSP OUTPATIEN INC T EMERGENCY 64509 MAXIMUS 0 0 MEM HOSP DEPARTMEN [facility] T VISIT HIGH/URGE NT [facility] MAXIMUS - 9 9 MEM HOSP OUTPATIEN INC [facility] MAXIMUS - 9 9 MEM HOSP OUTPATIEN INC T OFFICE 70964 ALLRAN ALLRAN CONSULTAT 9 9 JR HICKS ION CHARLES F CHARLES F NEW/ESTAB PATIENT 60 MIN OFFICE 64466 MILLICENT RICKS OUTPATIEN 9 9 Max HICKS JR, Max Azevedo T VISIT 15 MINUTES
--- OUTSIDE RECORDS SUMMARY | 2016-12-24 14:00 | External Medical Summary Rpt | CCD ---
Author Author , SHELLY BRAVO Address Unknown Phone Care Team Providers Care Surveillance System Monitor Name Role Phone RIGOBERTO VALLE JR, Unavailable Unavailable RIGOBERTO VALLE JR [facility] Unavailable Unavailable SURGERY [facility], [facility] SURGERY [facility] Unavailable Unavailable [facility] SHRAVAN SINGH, Unavailable Unavailable SHRAVAN SINGH WARREN, Unavailable Unavailable CHANEL VALENTE [facility] Unavailable Unavailable SERVICE, [facility] VINEET ORTIZ, Unavailable Unavailable VINEET [...] MICKI LAZAR MARK E, Unavailable Unavailable SATHISH HWITMAN STEPHEN P, Unavailable Unavailable SHRAVAN PAIZ JEFF A, Unavailable Unavailable JIM SANTOYO JEFFREY M, Unavailable Unavailable EVELIA COTO [facility] Unavailable Unavailable #571, [facility] Unavailable Unavailable #591, [facility] # Unavailable Unavailable [id number], [facility] # [id number] SHARON MUNROE, Unavailable Unavailable SHARON MUNROE Purpose Continuity of Care Document - 06-21-2008 through 2016 Problems Code Diagnosis DOS Provider Status 7821 RASH AND 05-25-2013 OZOR MAR OTHER NONSPECIFIC SKIN ERUPTION 6829 CELLULITIS 08-09-2009 NELSON LAGOON AND [facility] OF UNSPECIFIED SITE 2152 OTH STEPHEN LADONNA 07-18-2009 RUI VERDE CNCTV&OTH TZ SFT TISS UP &ASSOCHANDC LIMB ARE [facility] W/SHLDR 9595 INJURY 07-18-2009 RUI VERDE OTHER AND TZ UNSPECIFIED &ASSOCHANDC FINGER ARE [facility] V5889 ENCOUNTER 07-18-2009 RUI VERDE FOR OTHER TZ SPECIFIED &ASSOCHANDC AFTERCARE ARE [facility] 57259 PAIN IN 07-01-2009 RUI VERDE JOINT, [facility] 18089 SWELLING OF 07-01-2009 RUI VERDE LIMB [facility] 22734 UNSPECIFIED 07-01-2009 RUI VERDE CYST OF TZ AND BONE ASSOC[facility]ATES V5878 AFTERCARE 07-01-2009 RUI VERDE FOLLOW TZ AND SURGERY ASSOCIATES MUSCULOSKEL SYSTEM NEC 46344 UNSPECIFIED 06-30-2009 [facility] CELLULITIS [facility] AND INC ABSCESS OF FINGER 91411 OTHER 06-30-2009 [facility] POSTOPERATI EMERGENCY VE SERVICES INFECTION ASSOCIATES NEC 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 [place], [facility] UPPER LIMB 2380 NEOPLASM 06-28-2009 ALLAN UNCERTAIN AND LIRA BEHAVIOR PSC BONE&ARTICL R CART 7062 SEBACEOUS 06-28-2009 [facility] PATHOLOGIST PSC V7281 PRE-OPERATI 06-26-2009 [facility] VE [facility] CARDIOVASCU INC LAR EXAMINATION 7822 LOCALIZED 06-03-2009 [facility] SUPERFICIAL ORTHOPAEDIC SWELLING S PLC [place] LUMP 2382 NEOPLASM OF 05-31-2009 MILLICENT JANSEN JR, J V BEHAVIOR OF SKIN 08538 DISORDER OF 05-31-2009 [place] ORTHO BONE AND AND HAND CARTILAGE SURGEONS UNSPECIFIED PSC 73755 OTHER 05-22-2009 ESTEFANIA C SYMPTOMS ROGERIO REFERABLE JOINT OTHER SPEC SITE 57211 ING SHIRA 04-11-2009 TORI HICKS, W/O MENTION RIGOBERTO F OBST/GANGRE N UNILAT/[place] [address] ABDOMINAL 03-26-2009 [place] PAIN RIGHT [facility]OWER [facility] 10840 CHEST PAIN 03-16-2009 [facility] UNSPECIFIED [facility] PROF SERV 25877 OTHER CHEST 03-16-2009 [facility] SERVICE V7283 OTHER 01-23-2009 [facility] SPECIFIED [facility] PRE-OPERATI INC VE EXAMINATION 92939 [facility] SHIRA 01-07-2009 RICKS W/O JR, J [...] Procedure DOS Code Location Performer Comment RADEX 76778 NICK VERDE FINGR 0 JO CH, MINIMUM 2 &ASSOCHAN CHANEL VIEWS DCARE PLL RADEX 12891 DIANA VERDE, FINGR 0 JO AND VINEET K MINIMUM 2 ASSOCIATE VIEWS S RADEX 76471 CAPRI WALKER FINGR 0 MEDICAL ALEJANDRA P MINIMUM 2 IMAGING VIEWS ASSOCIATE S BLOOD 82569 [facility] MAXIMUS COUNT 0 [facility] COMPLETE INC INC AUTO&AUTO DIFRNTL WBC EXCISION/ 44230 TAOIST TAOIST CURETTAGE 0 [facility] SURGERY SURGERY CYST/TUMO [facility], [facility] FINGER SLINGS A4565 [facility] 0 LEVEL III 31919 TAOIST TAOIST SURG 0 [facility] PATHOLOGY [facility] GROSS&ELI ROSCOPIC EXAM EXC 46178 NICK VERDE LESION 0 JO CH, TDN &ASSOCHAN CHANEL SHTH/JT DCARE [facility] HAND/FNGR ANES 11930 ALLAN PAIZ, ARTHRS/EN 0 AND SHRAVAN P DSCPY LIRA DSTL PSC RADIUS ULNA/WRIS T/HAND PROSTHETI L8699 TAOIST TAOIST C IMPLANT 0 [facility] SURGERY SURGERY OTHERWISE [place] [facility] SPECIFIED BLOOD 29511 MAXIMUS MAXIMUS COUNT 0 [facility] COMPLETE INC INC AUTO&AUTO DIFRNTL WBC RADEX 43558 NICK VERDE FINGR 0 JO CH, MINIMUM 2 &ASSOCHAN CHANEL VIEWS DCARE [facility] MRI UPPER 35752 CAPRI MIGUEL, EXTREM 0 IMAGING [facility] THAN JT W/O & W/CONTRAS MRI UPPER 71713 ESTEFANIA C ROGERIO, 0 ROGERIO ESTEFANIA EXTREMITY OTH THAN JT W/O CONTR MATRL RADEX 78908 CAPRI AARON, FINGR 0 MEDICAL ALEJANDRA P MINIMUM 2 IMAGING VIEWS ASSOCIATE S US PELVIC 73132 CAPRI ROGERIO, 0 MEDICAL ESTEFANIA NONOBSTET IMAGING RADHA ASSOCIATE REAL-TIME S IMAGE COMPLETE GROUND A0425 ELROY ABBASI MILEAGE 0 AMBULANCE AMBULANCE PER SERVICE SERVICE STATUTE MILE ECG 06626 MAX[facility] SINGH, ROUTINE 0 [facility] W/LEAST PROF SERV 12 LDS I&R ONLY RHYTHM 77495 [facility] STROUD ECG 1-3 0 MEM [facility] LEADS INC INC TRACING ONLY W/O I&R BLOOD 54580 [facility] STROUD COUNT 0 [facility] COMPLETE INC INC AUTO&AUTO DIFRNTL WBC AMB A0422 ELROY ABBASI OXYGEN&O2 0 AMBULANCE AMBULANCE SUPPLIES SERVICE SERVICE [place] [address] [facility] STROUD TROPONIN 0 MEM [facility] QUANTITAT INC INC KAELA CREATINE 98993 [facility] STROUD KINASE 0 [facility] TOTAL INC INC ECG 29833 [facility] STR[facility]D ROUTINE 0 [facility] ECG INC INC W/LEAST 12 LDS TRCG ONLY W/O I&R RADIOLOGI 56096 [facility] STROUD C 0 [facility] EXAMINATI INC INC ON CHEST [place] FRONTAL BASIC 38586 [facility] STROUD METABOLIC 0 [facility] PANEL INC INC CALCIUM TOTAL AMB A0427 ELROY ABBASI SERVICE 0 AMBULANCE AMBULANCE ALS SERVICE SERVICE EMERGENCY TRANSPORT LEVEL 1 CREATINE 17480 MAX[facility] STROUD KINASE MB 0 MEM HOS[facility] FRACTION INC INC ONLY ANESTHESI 95618 Mckenna CUMMINS 9 ANESTH JIM A INTRAPERI OF THE TONEAL [place] W/L[place] [address] MAX[facility] STROUD INFUSION 9 [facility] THERAPY INC INC PROPHYLAX IS/DX EA HOUR LAPAROSCO 91679 [facility] STROUD PY SURG 9 [facility] [place]PR [place] [address] [facility] STROUD INFUSION 9 [facility] THERAPY/P INC INC ROPHYLAXI S /DX 1ST TO 1 HR THERAPEUT 30373 [facility] STROUD IC 9 [facility] INJECTION INC INC IV PUSH EACH NEW DRUG LAP REP 1712 [facility] STROUD INDIRECT 9 [facility] INGUINAL INC INC HERNIA W/GRAFT/P ROSTH BLOOD 45427 [facility] STROUD COUNT 9 [facility] HEMOGLOBI INC INC N BASIC 59054 [facility] STROUD METABOLIC 9 [facility] PANEL INC INC CALCIUM TOTAL BLOOD 67457 [facility] STROUD COUNT 9 [facility] HOSP HEMATOCRI INC INC T Encounters Encounter Start End Date Code Location Performer Type Date EMERGENCY 40668 OZOR MAR OZOR MAR 4 4 DEPARTMEN T VISIT MODERATE [facility]VERITY OFFICE 01107 [facility] N [facility]RG[facility] 30 CARE [facility] - 0 0 [facility] 90362 ALLAN COTO, 0 0 EMERGENCY [facility] SERVICES T VISIT HIGH/URGE ASSOCIATE NT S SEVERITY EMERGENCY 14053 MAXIMUS 0 [address] [facility] T VISIT MODERATE SEVERITY HOSPITAL TAOIST - 0 0 [facility] MAXIMUS - 0 0 [facility] OUTPATIEN [facility] T OFFICE 60391 NICK VERDE CONSULTAT 0 0 JO HARPER, SIMI &SANDRA BUCHANAN NEW/ESTAB [facility] 40 MIN OFFICE 06152 [facility] 0 0 [place] SHARON Mckeon T VISIT ORTHOPAED 25 [facility] MINUTES OFFICE 49288 [place] [facility] FAT[place], OUTPATIEN 0 0 AND HAND DHARA A T VISIT SURGEONS 15 PSC MINUTES OFFICE 24558 [place], OUTPATIEN 0 0 AND HAND DHARA A T VISIT SURGEONS 10 PSC MINUTES OFFICE 45959 [place], OUTPATIEN 0 0 AND HAND DHARA A T NEW 30 SURGEONS MINUTES [facility] HOSPITAL MAXIMUS - 0 0 [facility] OUTPATIEN INC T OFFICE 75930 ALLRAN ALLRAN OUTPATIEN 0 0 JR KURT, Karolnia VISIT RIGOBERTO Tolbert 15 MINUTES HOSPITAL MAXIMUS - 0 0 [facility] OUTPATIEN INC T EMERGENCY 06948 ALLAN [place], DEPT 0 0 EMERGENCY [facility] VISIT SERVICES HIGH SEVERITY& ASSOCIATE THREAT S [facility] MAXIMUS - 0 0 [facility] H[facility] OUTPATIEN INC T EMERGENCY 09055 MAXIMUS 0 0 [facility] DEPARTMEN [facility] T VISIT HIGH/URGE NT [facility] MAXIMUS - 9 9 [facility] OUTPATIEN INC [facility] MAXIMUS - 9 9 [facility] OUTPATIEN INC T OFFICE 10225 ALLRAN ALLRAN CONSULTAT 9 9 JR HICKS ION CHARLES F CHARLES F NEW/ESTAB PATIENT 60 MIN OFFICE 99978 MILLICENT RICKS OUTPATIEN 9 9 Max HICKS JR, Max Azevedo T VISIT 15 MINUTES
--- OUTSIDE RECORDS SUMMARY | 2016-12-24 14:01 | External Medical Summary Rpt | CCD ---
Demographics Preferred Language Azeri Marital Status Unknown Religion Affiliation Unknown Race Unknown Ethnic Group Unknown Author Author , MARINA BRAVO Address Unknown Phone Immunization No patient found.
--- OUTSIDE RECORDS SUMMARY | 2016-12-24 14:01 | External Medical Summary Rpt ---
Author Author SHELLY Yu, [employer] Address Unknown Phone Unavailable
--- OUTSIDE RECORDS SUMMARY | 2016-12-24 14:01 | External Medical Summary Rpt | CCD ---
Demographics Preferred Language Yakut Marital Status Unknown Adventism Affiliation Unknown Race Unknown Ethnic Group Unknown Author Author , MARINA BRAVO Address Unknown Phone Immunization No patient found.
== END 2016-12-16 14:17 | disposition home or self-care (01) ==
LOC: ER 09:29
PROVIDERS: Emergency Medicine
DX: R10.31 Right lower quadrant pain (principal); R10.13 Epigastric pain; Z88.6 Allergy status to analgesic agent; F17.210 Nicotine dependence, cigarettes, uncomplicated